=== PATIENT | male | born 1990 | race Hispanic/Latino ===

== ENCOUNTER 2017-06-07 15:10 | Emergency (ER) | payer SELFPAY ==
[~2017-06-07] VITALS: Ht 177.8 cm; Wt 72.6 kg
[~2017-06-07 15:10] MED LIST: NAPROSYN500 MG PO
== END 2017-06-07 15:30 | disposition home or self-care (01) ==
LOC: ED 15:10
DX: Z00.8 Encounter for other general examination (principal)

== ENCOUNTER 2018-01-21 17:06 | Emergency (ER) | payer MEDICAID ==
[~2018-01-21] VITALS: Ht 177.8 cm; Wt 70.8 kg
[2018-01-21] MEDS ORDERED: AZITHROMYCIN250 MG PO (17:21)
[2018-01-21] MEDS ORDERED: VENTOLIN HFA18 GM INH (18:02)
[2018-01-21] MEDS ORDERED: PREDNISONE20 MG PO (18:02)
--- NOTE | 2018-01-21 23:13 | EKG ---
[facility] [address] [place] [address] Signed Normal sinus rhythm Normal ECG When compared with ECG of 04-JUL-2016 10:38, Vent. rate has increased BY 32 BPM Confirmed by STEVEN TAYLOR MD ([id number]) on 01/21/2018 11:13:24 PM Electronically Signed By: STEVEN TAYLOR MD 01/21/18 2313 PATIENT NAME: MALACHI BEARDEN Electrocardiogram DATE OF : [birth year] PHYSICIAN: STEVEN TAYLOR MD REPORT #: [id number] REPORT IS CONFIDENTIAL AND NOT TO BE RELEASED WITHOUT AUTHORIZATION
== END 2018-01-21 18:14 | disposition home or self-care (01) ==
LOC: ED 17:06
DX: J40 Bronchitis, not specified as acute or chronic (principal); F17.200 Nicotine dependence, unspecified, uncomplicated
CPT/HCPCS: 71045; 93005; 93010; 94640; 99283; J7512

== ENCOUNTER 2020-06-07 21:32 | Emergency (ER) | payer OTHER ==
[~2020-06-07] VITALS: Ht 177.8 cm; Wt 83.0 kg
[~2020-06-07 21:32] MED LIST changes: +AZITHROMYCIN250 MG PO; +PREDNISONE20 MG PO; +VENTOLIN HFA18 GM INH
[2020-06-08] MEDS ORDERED: REMERON15 MG PO (01:08)
[2020-06-08] MEDS ORDERED: LAMICTAL150 MG PO (01:08)
[2020-06-08] MEDS ORDERED: OMEPRAZOLE20 MG PO (02:46)
== END 2020-06-08 03:12 | disposition home or self-care (01) ==
LOC: ED 21:32
DX: K30 Functional dyspepsia (principal); Z87.891 Personal history of nicotine dependence; Z88.1 Allergy status to other antibiotic agents; Z79.899 Other long term (current) drug therapy
CPT/HCPCS: 76705; 80053; 81001; 83690; 85025; 96374; 96375; 99284-25; C9113; J1885

== ENCOUNTER 2020-07-13 20:59 | Emergency (ER) | payer OTHER ==
[~2020-07-13] VITALS: Ht 177.8 cm; Wt 83.0 kg
[~2020-07-13 20:59] MED LIST changes: +LAMICTAL150 MG PO; +OMEPRAZOLE20 MG PO; +REMERON15 MG PO
[2020-07-13] MEDS ORDERED: BENTYL10 MG/1 ML IM (21:09)
[2020-07-13] MEDS ORDERED: NAPROXEN250 MG PO (21:09)
[2020-07-13] MEDS ORDERED: PEPCID20 MG PO (21:10)
[2020-07-13] MEDS ORDERED: PROTONIX40 MG PO (22:02)
== END 2020-07-13 22:20 | disposition home or self-care (01) ==
LOC: ED 20:59
DX: R10.13 Epigastric pain (principal); Z87.891 Personal history of nicotine dependence; Z88.1 Allergy status to other antibiotic agents; Z79.899 Other long term (current) drug therapy
CPT/HCPCS: 80053; 81001; 83690; 85025; 96374; 96375; 99284-25; C9113; J2405; J7030

== ENCOUNTER 2020-12-01 05:58 | Day surgery (SDC) | payer OTHER ==
[~2020-12-01] VITALS: Ht 177.8 cm; Wt 81.8 kg
[~2020-12-01 05:58] MED LIST changes: +BENTYL10 MG/1 ML IM; +NAPROXEN250 MG PO; +PEPCID20 MG PO; +PROTONIX40 MG PO
--- NOTE | 2020-12-01 08:06 | NUR ---
12/01/20 0806 Trinh Gerard 0759 PATIENT ARRIVES TO PACU AWAKE BUT DROWSY. RESP EVEN AND UNLABORED, ROOM AIR SATS >93%. PATIENT DENIES PAIN, BUT C/O NAUSEA.
--- NOTE | 2020-12-01 12:12 | OR ---
[facility] [address] [place], [place] [address] Signed DATE OF OPERATION: 12/01/2020 SURGEON: Bar Sharp MD PREOPERATIVE DIAGNOSES: 1. Persistent epigastric and substernal pain. 2. Negative gallbladder ultrasound. POSTOPERATIVE DIAGNOSES: Poor flap valve and distal esophagitis without stricture. PROCEDURE: Esophagogastroduodenoscopy with biopsy. ANESTHESIA: Intravenous sedation, fentanyl 100 mcg and Versed 4 mg. INDICATION: This 30-year-old white man is a prisoner at [facility] and a patient of [facility]. He was referred initially with consideration for cholecystectomy on the basis of an ultrasound that had shown gallstones. Close review of the report, however, shows he did not have gallstones in fact. His symptoms are more epigastric and substernal in nature and he has been treated with Pepcid and Prilosec. This has been marginally helpful. Recommendation has been made for CCK-HIDA test to be obtained. In the meantime, upper endoscopy may be beneficial as he may have ulcer or neoplastic disease symptoms. The risks of bleeding, infection, perforation, and so forth related to upper endoscopy is reviewed. He understands and wished to proceed. FINDINGS: He did have distal esophagitis without stricture. There is no sign of Jo's. He did have a poor flap valve, though no sign of large hiatal hernia proper. Stomach, duodenum and esophagus otherwise were normal. CLOtest was negative 15 minutes postprocedure. DESCRIPTION OF PROCEDURE: The patient was brought to the endoscopy suite and given topical lidocaine hypopharyngeal anesthesia and placed in lateral decubitus position. He was given intravenous sedation to the point of slurred speech and nystagmus with full cardiopulmonary monitoring. A bite block was placed. Electronically Signed By: BAR SHARP MD 12/01/20 1212 PATIENT NAME: GILLES LLANES OPERATIVE REPORT DATE OF : [birth year] REPORT #: [id number] PHYSICIAN: BAR SHARP MD PCP: KIMBERLY PARSON NP REPORT IS CONFIDENTIAL AND NOT TO BE RELEASED WITHOUT AUTHORIZATION [facility] [address] [place], [place] [address] Signed An Olympus video upper endoscope was passed in the hypopharynx. The vocal cords evaluated and found to be normal. The scope was advanced to the esophagus and was it normal except in the distal portion where there was linear erythematous streaking consistent with distal esophagitis. The scope was advanced to the stomach. Rugal folds were normal. Antral motility was normal. The pylorus was normal. Scope was passed through into the duodenum. The duodenum was normal. There was no sign of ulceration. Biopsies were obtained to assess for celiac disease. The scope was withdrawn and biopsies then taken of the antrum for both TONNY and pathologic testing. Retroflexed view was undertaken. Upon withdrawal of scope, the flap valve was noted to be markedly effaced. The scope was withdrawn after straightening and biopsies taken of the distal esophagus. The middle esophagus appeared normal. Scope was removed and the patient was taken to the recovery room in good condition. CONCLUDING DIAGNOSIS: Persistent distal esophagitis and poor flap valve. Marginal response to Pepcid and Prilosec. I would recommend Prilosec b.i.d. and discontinue Pepcid altogether. Still would recommend CCK-HIDA test. FOLLOWUP: [facility] will [facility] by then his studies likely will have been completed. MD JEANNE Snider/KEMI /[id number] cc: Kimberly Parson NP Copies: KIMBERLY PARSON NP ~ Electronically Signed By: BAR SHARP MD 12/01/20 1212 PATIENT NAME: GILLES LLANES OPERATIVE REPORT DATE OF : [birth year] REPORT #: [id number] PHYSICIAN: BAR SHARP MD PCP: KIMBERLY PARSON NP REPORT IS CONFIDENTIAL AND NOT TO BE RELEASED WITHOUT AUTHORIZATION
--- NOTE | 2020-12-05 13:30 | PATH ---
[facility] [address] [place], [place] [address] Signed SPECIMEN(S): A DUODENAL BIOPSY SPECIMEN(S): B ANTRUM/PYLORUS BIOPSY SPECIMEN(S): C LOWER ESOPHAGEAL BIOPSY SPECIMEN SOURCE: A. DUODENAL BIOPSY B. ANTRUM/PYLORUS BIOPSY C. LOWER ESOPHAGEAL BIOPSY CLINICAL HISTORY: Esophagogastroduodenoscopy. Preop: Cholelithiasis, upper right quadrant pain, gastroesophageal reflux disease with esophagitis. Postop: Distal esophagitis. MICROSCOPIC DESCRIPTION: Histologic sections of all submitted blocks are examined by light microscopy. These findings, together with the gross examination, support the pathologic diagnosis. FINAL PATHOLOGIC DIAGNOSIS: A. Duodenum, biopsy: - Duodenal mucosa with no significant pathologic changes. B. Stomach, antrum/pylorus, biopsy: - Gastric antral and oxyntic mucosa with no significant pathologic changes. - Negative for Helicobacter pylori with HE stains. C. Esophagus, lower, biopsy: - Esophageal squamous mucosa with active reflux esophagitis. - Negative for fungal organisms by special stains (GMS). BRP:bg:slh:C2NR GROSS DESCRIPTION: Three specimens are received in three containers labeled with "DR." A. The specimen, labeled "DR," and designated on the requisition "duodenum biopsy," is received in formalin and consists of one fragment of pink-jose tissue (0.6 x 0.2 x 0.2 cm). The specimen is submitted entirely in cassette (A1). B. The specimen, labeled "DR," and designated on the requisition "antrum/pylorus biopsy," is received in formalin and consists of two fragments of pink-jose tissue (0.5 x 0.2 x 0.2 cm in aggregate). The specimen is submitted entirely in cassette (B1). C. The specimen, labeled "DR," and designated on the requisition "lower esophagus biopsy," is received in formalin and consists of two fragments of white-jose tissue (0.5 x 0.5 x 0.1 cm in aggregate). PATIENT NAME: GILLES LLANES PATHOLOGY DATE OF : [birth year] REPORT #: [id number] PHYSICIAN: JOSEFINA BURT PCP: JIMMY PARSON NP REPORT IS CONFIDENTIAL AND NOT TO BE RELEASED WITHOUT AUTHORIZATION [facility] [address] [place], [place] [address] Signed The specimen is submitted entirely in cassette (C1). AC (under the direct supervision of a pathologist) The Gross Description was prepared using a voice recognition system. The report was reviewed for accuracy; however, sound-alike word errors, addition and/or deletions may occur. If there is any question about this report, please contact Client Services. PERFORMING LABORATORY: The technical component was performed by [employer], [address] [place] [address] (Mobile Application Architect: Ade Thurston MD; CLIA# [id number]). Professional interpretation was performed by [facility], [address] [address] (CLIA# [id number]). Diagnostician: Jaden Lombardi MD Pathologist Electronically Signed 12/05/2020 Copies: ~ PATIENT NAME: LLANESGILLES NANY PATHOLOGY DATE OF : [birth year] REPORT #: [id number] PHYSICIAN: JOSEFINA PATHOLOGY PCP: JIMMY PARSON NP REPORT IS CONFIDENTIAL AND NOT TO BE RELEASED WITHOUT AUTHORIZATION
== END 2020-12-01 08:30 | disposition home or self-care (01) ==
LOC: OPS 05:58 → DS 06:45 → OPS 08:30
PROVIDERS: ATTEND Surgery
PROC: 0DB58ZZ Excision of Esophagus, Via Natural or Artificial Opening Endoscopic (ICD-10-PCS; principal; 2020-12-01 06:45)
DX: K21.00 Gastro-esophageal reflux disease with esophagitis, without bleeding (principal); Z87.891 Personal history of nicotine dependence; J45.909 Unspecified asthma, uncomplicated; G47.00 Insomnia, unspecified
CPT/HCPCS: 99153; G0500; J2250; J3010; J7121

== ENCOUNTER 2021-02-13 05:37 | Day surgery (SDC) | payer OTHER ==
[~2021-02-13] VITALS: Ht 177.8 cm; Wt 81.6 kg
[2021-02-13] MEDS ORDERED: REMERON15 MG PO (06:08)
[2021-02-13] MEDS ORDERED: HYDROCODON-ACE1 EA10 PO ×2 (09:18→10:11)
[2021-02-13] MEDS ORDERED: IBUPROFEN600 MG PO ×2 (09:18→10:12)
[2021-02-13] MEDS ORDERED: ACETAMINOPHEN500 MG PO (09:18)
--- NOTE | 2021-02-13 09:32 | NUR ---
02/13/21 0932 Martha Sidhu 0852 PT ARRIVED IN PACU NON RESPONSIVE TO NOXIOUS STIMULI WITH OPA IN PLACE. TRANSPORT GUARD AT BEDSIDE. 0906 PT REACTIVE. OPA REMOVED. 911 C/O ABD PAIN. UNABLE TO RATE AT THIS TIME. FENTANYL 25MCG GIVEN IVP. 915 CONTINUES TO C/O ABD PAIN. GRABBING AT ABD. FENTANYL 25MCG GIVEN IVP. 919 STERI STRIP LOOSE ON R SIDE OF ABD. BANDAIDE OVER SITE. 924 C/O 7/10 ABD PAIN. FENTANYL 50MCG GIVEN IVP. TAKING SIPS OF WATER. 929 RESTING. REU.
--- NOTE | 2021-02-13 09:58 | NUR ---
0940: PT ARRIVES BACK TO DS TREATMENT ROOM FROM PACU AWAKE AND ALERT. PT DENIES ANY NAUSEA AND TOLERATES SMALL SIPS OF WATER. PT WINCING FACE AND GRABBING AT RUQ, RATES PAIN 7/10 AND "SHARP, STABBING." PT PROVIDED ICED WATER, CRACKERS AND PUDDING PER REQUEST IN ANTICIPATION OF PO PAIN MEDS. 2 NURSING HOME GUARDS PRESENT AT BEDSIDE WITH CALL LIGHT. PT EDUCATED ABOUT DC CRITERIA.
[2021-02-13] MEDS ORDERED: MAPAP500 MG PO (10:12)
--- NOTE | 2021-02-13 10:21 | NUR ---
IN TO PT ROOM TO ASSESS NORCO PAIN MEDICATION. PT RESTING WITH EYES CLOSED, RESP EVEN AND UNLABORED. PT DOES NOT WAKE ON ENTRANCE TO ROOM. PT EASILY AROUSES WITH VERBAL STIMULATION AND STATES PAIN IS "A LITTLE BETTER BUT IN SAME SPOT" AND QUICKLY CLOSES EYES AGAIN WITH NO STIMULATION. TWO LONGTERM GUARDS STANDING AT BEDSIDE.
--- NOTE | 2021-02-13 11:05 | NUR ---
1035: PT UP TO BATHROOM WITH CORRECTION GUARDS, ABLE TO VOID QS WITH NO PROBLEMS. RN IN TO ASSESS PT, UMBILICUS AND RUQ DRESSING HAVE POOLING NOTED. THIS RN REINFORCES ALL 4 DRESSINGS WITH GAUZE AND PAPER TAPE TO ENSURE NO DRAINAGE ON CLOTHING. PT STAES PAIN IS "FINE" AND AGREES THAT PAIN HAS LESSENED WITH PO PAIN MEDS, RATES 5-6/10. IV REMOVED WNL AND PRESSURE DRESSING PLACED, ENC TO REMOVE IN APPROX 10-15 MINUTES. DC INSTRUCTIONS PRESENTED TO PT WITH CORRECTION GUARDS AT BEDSIDE AND PLACED IN PROVIDED ENVELOPE AND SEALED. DURING DC INSTRUCTIONS PT STATES FEELING NAUSEATED, PROVIDED EMESIS BAG. PT SITS FOR A MOMENT AND TAKE DEEP BREATHS, NO EMESIS OR HEAVING AND IS ABLE TO TRANSFER FROM BED TO WC. PT DC VIA WC WITH CORRECTION GUARDS FROM DS TREATMENT TO [facility]. 1100: VERBAL REPORT CALLED TO "AYAZ NGUYEN" AT [facility].
--- NOTE | 2021-02-13 19:50 | OR ---
[facility] [address] [place], [place] [address] Signed DATE OF OPERATION: 02/13/2021 SURGEON: Bar Sharp MD PREOPERATIVE DIAGNOSIS: Chronic acalculous cholecystitis. POSTOPERATIVE DIAGNOSIS: Chronic acalculous cholecystitis. PROCEDURES: 1. Laparoscopic cholecystectomy with intraoperative cholangiogram. 2. Surgeon-directed fluoroscopy. ANESTHESIA: General endotracheal, Frank Wes, PIGEON FANCIER and local 20 mL of 0.25% Marcaine with epinephrine. INDICATION: This 30-year-old man is a prisoner at [facility] and is a patient of Kimberly Parson [facility]. The patient has had right subcostal and epigastric pain, sometimes radiating into the right subscapular area. A gallbladder ultrasound was normal. Upper endoscopy did not show any sign of abnormality that would account for his symptoms. He subsequently underwent a CCK-HIDA test, which showed an ejection fraction of only 15% with reproduction of his symptoms. On the basis of probable acalculous cholecystitis, he is admitted at this time to undergo cholecystectomy preferred by laparoscopic approach. He understands the risks of bleeding, infection, need for open operation, and other unforeseen complications and wished to proceed. FINDINGS: The gallbladder was chronically inflamed. There was an enlarged pericholecystic lymph node. Intraoperative cholangiogram was normal. The gallbladder once excised showed chronic inflammatory change of the mucosa, but there were no stones. Notably, the liver was completely normal in every way. There were no other findings of concern. DESCRIPTION OF PROCEDURE: The patient was brought to the operating room, given a general endotracheal anesthetic without problem. Preoperative antibiotic Ancef was given. Sequential compression device stockings used and heparin subcutaneously administered. The abdomen was prepared with a chlorhexidine solution and draped sterilely after clipping. He had a rather Electronically Signed By: BAR SHARP MD 02/13/21 1950 PATIENT NAME: GILLES LLANES OPERATIVE REPORT DATE OF : [birth year] REPORT #: [id number] PHYSICIAN: BAR SHARP MD PCP: KIMBERLY PARSON NP REPORT IS CONFIDENTIAL AND NOT TO BE RELEASED WITHOUT AUTHORIZATION [facility] [address] [place], [place] [address] Signed elaborate abdominal tattoo and efforts were made successfully to avoid interrupting the tattoo with trocar incisions. An infraumbilical incision was made and using an open Ladarius cannula technique, pneumoperitoneum was achieved to a level of 14 mmHg of carbon dioxide gas. Intraabdominal inspection showed no sign of ascites or carcinomatosis. The gallbladder itself was mildly chronically inflamed. The liver was entirely normal. Three additional trocars were placed in usual configuration in the subxiphoid, right midclavicular, and right anterior axillary line. The gallbladder was elevated cephalad and retracted laterally and using blunt electrocautery dissection, the triangle of Calot was dissected free. A rather enlarged pericholecystic lymph node was noted, indicative of chronic inflammation. Ultimately, the cystic duct was well defined and a clip applied across gallbladder cystic duct junction. A transverse choledochotomy was made in the cystic duct and egress of clear bile was noted. Using the Smith-type cholangiocatheter, intraoperative cholangiography was undertaken showing free flow of contrast in the biliary tree with prompt emptying into the duodenum. Conventional anatomy was noted. There was no abnormality and certainly no sign of stone. Catheter was removed and the cystic duct was triply clipped and divided. The gallbladder was dissected free in a retrograde fashion using electrocautery. Cystic arterial branches were clipped as necessary. The gallbladder was extracted through the infraumbilical port site without problem, opened on the back table and found to have chronic inflammatory changes of mucosa, but no sign of stone or neoplasm. Irrigation was undertaken in the subhepatic space. There was no sign of bile leak, bleeding, or other problems. The trocars were inspected. Upon withdrawal, the trocars showing a small amount of bleeding in the right midclavicular site, which was secured with electrocautery. Attention was turned towards closure. The infraumbilical fascial incision was reapproximated with interrupted 0 Vicryl suture. Similarly, the epigastric port site was closed. Irrigation was undertaken. The skin closed with interrupted 3-0 Vicryl. Steri-Strips were applied. The patient was ultimately extubated and transferred to the recovery room in good condition having suffered no complication. Sponge, needle, and instrument counts were reported as correct x3. Bar Sharp MD /MODL /[id number] Electronically Signed By: BAR SHARP MD 02/13/21 1950 PATIENT NAME: GILLES LLANES OPERATIVE REPORT DATE OF : [birth year] REPORT #: [id number] PHYSICIAN: BAR SHARP MD PCP: KIMBERLY PARSNO NP REPORT IS CONFIDENTIAL AND NOT TO BE RELEASED WITHOUT AUTHORIZATION [facility] [address] [place], [place] [address] Signed cc: Kimberly Parson NP EOCI Copies: KIMBERLY PARSON NP ~ Electronically Signed By: BAR SHARP MD 02/13/21 1950 PATIENT NAME: GILLES LLANES OPERATIVE REPORT DATE OF : [birth year] REPORT #: [id number] PHYSICIAN: BAR SHARP MD PCP: KIMBERLY PARSON NP REPORT IS CONFIDENTIAL AND NOT TO BE RELEASED WITHOUT AUTHORIZATION
--- NOTE | 2021-02-14 13:53 | PATH ---
[facility] [address] [place], [place] [address] Signed SPECIMEN(S): A GALLBLADDER SPECIMEN SOURCE: A. GALLBLADDER CLINICAL HISTORY: Laparoscopic cholecystectomy. Right upper quadrant pain. FINAL PATHOLOGIC DIAGNOSIS: Gallbladder, cholecystectomy: - Gallbladder with features of mild chronic cholecystitis. NAL:cml:C2NR MICROSCOPIC EXAMINATION: Histologic sections of all submitted blocks are examined by light microscopy. Sections demonstrate fragments of gallbladder mucosa with focal chronic inflammation and Rokitansky-Aschoff sinuses. Gallbladder wall thickening is not appreciated. These findings, together with the gross examination, support the pathologic diagnosis. GROSS DESCRIPTION: The specimen, labeled "Chung BARKER," and designated on the requisition "gallbladder," is received in formalin and consists of Specimen: Previously opened gallbladder. Dimensions: 6.0 x 4.5 cm. Serosa: Green and smooth. Cystic Duct: Unobstructed. Calculi: Not grossly identified. Mucosa: Green and velvety. Wall thickness: Up to 0.4 cm. Lymph node: No pericystic lymph nodes are grossly identified. Additional: None. Necktie Operator Pockets And Pieces sections are submitted in cassette (A1). AT (under the direct supervision of a pathologist) The Gross Description was prepared using a voice recognition system. The report was reviewed for accuracy; however, sound-alike word errors, addition and/or deletions may occur. If there is any question about this report, please contact Client Services. PERFORMING LABORATORY: The technical component was performed by [employer], Edmond Mehta, PATIENT NAME: GILLES LLANES PATHOLOGY DATE OF : [birth year] REPORT #: [id number] PHYSICIAN: JOSEFINA BURT PCP: JIMMY PARSON NP REPORT IS CONFIDENTIAL AND NOT TO BE RELEASED WITHOUT AUTHORIZATION [facility] [address] [place], [place] [address] [place] [address] (Bench Worker Hollow Handle: Ade Thurston MD; CLIA# [id number]). Professional interpretation was performed by [facility], [address] [address] (CLIA# [id number]). Diagnostician: Xuan Amaral MD Pathologist Electronically Signed 02/14/2021 Copies: ~ PATIENT NAME: GILLES LLANES PATHOLOGY DATE OF : [birth year] REPORT #: [id number] PHYSICIAN: JOSEFINA BURT PCP: JIMMY PARSON NP REPORT IS CONFIDENTIAL AND NOT TO BE RELEASED WITHOUT AUTHORIZATION
== END 2021-02-13 10:50 | disposition home or self-care (01) ==
LOC: DS 05:37
PROVIDERS: ATTEND Surgery
PROC: BF10YZZ Fluoroscopy of Bile Ducts using Other Contrast (ICD-10-PCS; 2021-02-13)
PROC: 0FT44ZZ Resection of Gallbladder, Percutaneous Endoscopic Approach (ICD-10-PCS; principal; 2021-02-13 06:45)
DX: K81.1 Chronic cholecystitis (principal); K21.00 Gastro-esophageal reflux disease with esophagitis, without bleeding; G47.00 Insomnia, unspecified; J45.909 Unspecified asthma, uncomplicated; Z20.822 Contact with and (suspected) exposure to COVID-19; Z87.891 Personal history of nicotine dependence; Z88.8 Allergy status to other drugs, medicaments and biological substances; Z91.038 Other insect allergy status
CPT/HCPCS: 00790; 74300; 81001; J0690; J1100; J1644; J1885; J2001; J2250; J2405; J2704; J3010; J7121; Q9967; U0003

== ENCOUNTER 2022-02-12 10:29 | Emergency (ER) | payer OTHER ==
[~2022-02-12] VITALS: Ht 177.8 cm; Wt 81.7 kg
[~2022-02-12 10:29] MED LIST changes: +ACETAMINOPHEN500 MG PO; +HYDROCODON-ACE1 EA10 PO; +IBUPROFEN600 MG PO; +MAPAP500 MG PO
--- OUTSIDE RECORDS SUMMARY | 2022-02-12 10:32 | XMS ---
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 - Patient with suicidal and/or homicidal ideations eloped. - Patient eloped with IV in place. Details: PATIENT LWBS CRITERIA MET - PDMP CARE PROVIDERS ISIDORO GUILLEN Physician Current PHONE: Unknown Jaden has no Care Guidelines for this patient. [facility] ([facility] MO.) [facility] T[facility] 3 NOTE: Visits indicate total known visits. ED/UCC VISIT TRACKING (12 MO.) 02/12/2022 10:30 [facility] TYPE: Emergency COMPLAINT: - POSS UTI 01/07/2022 12:31 [facility] [place] TYPE: Emergency COMPLAINT: - LEGS/ARMS/ FACE TINGLING NUMBNESS, WEAK 07/14/2021 13:07 [facility] Nancy ARANDA TYPE: Emergency DIAGNOSES: - Vasectomy status - post opp issue - Post-op Problem - Contusion of scrotum and testes, initial encounter INPATIENT VISIT TRACKING (12 MO.) No inpatient visits to display in this time frame [email or web address]
[2022-02-12] MEDS ORDERED: VISTARIL25 MG PO (10:55)
[2022-02-12] MEDS ORDERED: DOXYCYCLINE HY100 MG PO (11:55)
== END 2022-02-12 12:45 | disposition home or self-care (01) ==
LOC: ED 10:29
DX: R30.0 Dysuria (principal); Z87.891 Personal history of nicotine dependence; Z88.8 Allergy status to other drugs, medicaments and biological substances; Z91.030 Bee allergy status; Z91.018 Allergy to other foods; Z79.899 Other long term (current) drug therapy
CPT/HCPCS: 51798; 81001; 87591; 99283-25; J0696

== ENCOUNTER 2024-12-29 23:01 | Emergency (ER) | payer OTHER ==
[~2024-12-29] VITALS: Ht 177.8 cm; Wt 64.8 kg
[~2024-12-29 23:01] MED LIST changes: +DOXYCYCLINE HY100 MG PO; +VISTARIL25 MG PO
[2024-12-30 00:38] VITALS: BP 131/99
== END 2024-12-30 00:34 | disposition home or self-care (01) ==
LOC: ED 23:01
DX: S61.214A Laceration without foreign body of right ring finger without damage to nail, initial encounter (principal); W26.0XXA Contact with knife, initial encounter; Z87.891 Personal history of nicotine dependence; Z91.030 Bee allergy status; Z88.8 Allergy status to other drugs, medicaments and biological substances; Z91.018 Allergy to other foods; Z79.899 Other long term (current) drug therapy
CPT/HCPCS: 12001; 99282

== ENCOUNTER 2024-12-30 23:02 | Emergency (ER) | payer OTHER ==
[~2024-12-30] VITALS: Ht 177.8 cm; Wt 66.0 kg
--- OUTSIDE RECORDS SUMMARY | 2024-12-30 23:08 | XMS ---
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 Zaida VISIT COUNT (12 MO.) 2 [facility] TOTAL 2 NOTE: Visits indicate total known visits. ED/UCC VISIT TRACKING (12 MO.) 12/30/2024 23:02 [facility] [place] TYPE: Emergency COMPLAINT: - FINGER LACERATION 12/29/2024 23:01 [facility] [place] TYPE: Emergency COMPLAINT: - FINGER LACERATION INPATIENT VISIT TRACKING (12 MO.) No inpatient visits to display in this time frame [email or web address]
[2024-12-31 00:22] VITALS: BP 150/90
== END 2024-12-31 00:23 | disposition home or self-care (01) ==
LOC: ED 23:02
DX: S61.211A Laceration without foreign body of left index finger without damage to nail, initial encounter (principal); Z87.891 Personal history of nicotine dependence; Z87.828 Personal history of other (healed) physical injury and trauma; Z88.8 Allergy status to other drugs, medicaments and biological substances; Z91.018 Allergy to other foods; Z91.030 Bee allergy status; W26.0XXA Contact with knife, initial encounter
CPT/HCPCS: 12001; 99282

== ENCOUNTER 2025-08-16 13:15 | Emergency (ER) | payer OTHER ==
[~2025-08-16] VITALS: Ht 177.8 cm; Wt 65.9 kg
--- OUTSIDE RECORDS SUMMARY | ~2025-08-16 | XMS | Continuity of Care Document ---
Demographics + + + | Address | [address] | | | [place] [address] | + + + | Preferred Language | Unknown | + + + | Marital Status | Unknown | + + + | Mormon Affiliation | Unknown | + + + | Race | Unknown | + + + | Ethnic Group | Unknown | + + + Author + + + | Author | [facility] | + + + | Organization | [facility] | + + + | Address | [address] | | | [place] [address] | + + + | Phone | | + + + Care Team Providers + + + + | Care Road Production General Manager Name | Role | Phone | + + + + Unavailable | Unavailable | + + + + Allergies No information. Encounters No information. Functional Status No information. Immunizations No information. Medications No information. Problems + + + + | date | description | facility | + + + + | 2025-07-28 17:30:50 | Other residential (current) | [facility] | | | drug therapy | | + + + + | 2025-07-29 11:23:12 | Chest Pain | [facility] | + + + + | 2025-07-29 13:41:58 | Chest pain, unspecified | [facility] | + + + + Procedures No information. Results/Labs No information. Social History +--------+ + + | date | description | facility | +--------+ + + Vital Signs No information."
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
[2025-08-16] MEDS ORDERED: CLONIDINE HCL0.1 MG PO (15:18)
[2025-08-16] MEDS ORDERED: LAMICTAL25 MG PO (15:18)
[2025-08-16 15:43] VITALS: BP 157/101
== END 2025-08-16 15:46 | disposition home or self-care (01) ==
LOC: ED 13:15
DX: Z76.0 Encounter for issue of repeat prescription (principal); F43.10 Post-traumatic stress disorder, unspecified; Z87.891 Personal history of nicotine dependence; Z91.030 Bee allergy status; Z91.018 Allergy to other foods
CPT/HCPCS: 99281